=== PATIENT | male | born 1945 | race Caucasian/White ===

== ENCOUNTER 2019-04-21 13:50 | Observation (INO) ==
[2019-04-21 15:15] LABS: Basophils % 0.4 % (0.0-0.8); Eosinophils # 0.3 10*3/uL (0.0-0.87); Hematocrit 40.8 VOL% (42.0-52.0); Hemoglobin 13.6 GM/DL (14.0-18.0); Immature Granulocytes % 0.3 %; Immature Granulocytes Absolute 0.02 #; Lymphocytes # 2.5 10*3/uL (1.4-4.0); Lymphocytes % 36.9 % (21.2-54.2); Mean Corpuscular HGB Conc 33.3 GM/DL (32-36); Mean Corpuscular Volume 86.6 FL (87-102); Mean Platelet Volume 10.1 FL (9.6-12.0); Monocytes % 7.3 % (1.7-12.7); Neutrophils % 51.1 % (38.7-73.9); Platelet Count 190 T/CUMM (130-400); Red Blood Count 4.71 MC/CUMM (3.8-5.5); Red Cell Distribution Width 13.8 % (9.3-17.3); White Blood Count 6.8 T/CUMM (4-12)
[2019-04-21 15:31] LABS: Albumin 3.6 G/DL (3.4-5.0); Bilirubin,Total 1.1 MG/DL (0.2-1.0); Calcium 8.9 MG/DL (8.5-10.1); Osmolality,Calculated 287.7 MOS/KG (273-304); Total Protein 6.7 G/DL (6.4-8.3)
[2019-04-21] MEDS ORDERED: LACTULOSE 20 GM/30 ML UDCUP PO PRN (16:31)
[2019-04-21] MEDS ORDERED: ACETAMINOPHEN 325 MG TABLET PO PRN (16:31)
[2019-04-21] MEDS ORDERED: ONDANSETRON 4 MG/2 ML VIAL IV PRN (16:31)
[2019-04-21] MEDS ORDERED: NITROGLYCERIN SL 0.4 MG TABLET SL PRN (17:06)
[2019-04-21] MEDS ORDERED: ENOXAPARIN 40 MG/0.4 ML SYRINGE SUBCUT SCH (17:30)
[2019-04-22 06:22] LABS: Basophils % 0.5 % (0.0-0.8); Eosinophils # 0.3 10*3/uL (0.0-0.87); Hematocrit 41.4 VOL% (42.0-52.0); Hemoglobin 13.9 GM/DL (14.0-18.0); Immature Granulocytes % 0.2 %; Immature Granulocytes Absolute 0.01 #; Lymphocytes # 2.7 10*3/uL (1.4-4.0); Lymphocytes % 49.1 % (21.2-54.2); Mean Corpuscular HGB Conc 33.6 GM/DL (32-36); Mean Corpuscular Volume 86.8 FL (87-102); Mean Platelet Volume 10.5 FL (9.6-12.0); Monocytes % 9.3 % (1.7-12.7); Neutrophils % 35.9 % (38.7-73.9); Platelet Count 192 T/CUMM (130-400); Red Blood Count 4.77 MC/CUMM (3.8-5.5); Red Cell Distribution Width 13.8 % (9.3-17.3); White Blood Count 5.6 T/CUMM (4-12)
[2019-04-22] MEDS ORDERED: MAGNESIUM SULF RIDER 2 GM in PREMIX 1 EACH IV PRN (06:54)
[2019-04-22] MEDS ORDERED: POTASSIUM CHLORIDE RIDER 10 MEQ in PREMIX 1 EACH IV PRN (06:54)
[2019-04-22 06:55] LABS: Calcium 8.9 MG/DL (8.5-10.1); Osmolality,Calculated 285.8 MOS/KG (273-304); Risk Ratio 4.5; Thyroid Stimulating Hormone 1.26 uIU/ml (0.358-3.74); VLDL CHOLESTEROL 17.6 MG/DL
[2019-04-22] MEDS ORDERED: diphenhydrAMINE CAP 50 MG CAPSULE PO ONE (06:55)
[2019-04-22] MEDS ORDERED: DIAZEPAM 5 MG TABLET PO ONE (06:55)
[2019-04-22 06:58] LABS: Eosinophils 6 % (0-10); Lymphocytes 43 % (20-55); Platelet Estimate Adequate; Segmented Neutrophils 38 % (50-85); Total Cells Counted 100
[2019-04-22] MEDS ORDERED: LIDOCAINE 1% 20 ML VIAL ONE (07:18)
[2019-04-22] MEDS ORDERED: HEPARIN/NACL 0.9% 2 UNITS/ML 1,000 ML IV ONE (07:18)
[2019-04-22] MEDS: SODIUM CHLORIDE 0.9% 1,000 ML IV SCH ×2 (07:40→17:11)
[2019-04-22] MEDS ORDERED: fentaNYL 100 MCG/2 ML VIAL ONE (08:01)
[2019-04-22] MEDS ORDERED: MIDAZOLAM 2 MG/2 ML VIAL ONE ×2 (08:01→08:38)
[2019-04-22] MEDS ORDERED: HEPARIN/NACL 0.9% 2 UNITS/ML 500 ML IV ONE (08:35)
[2019-04-22] MEDS ORDERED: HEPARIN 5,000 UNIT/1 ML VIAL ONE (08:35)
[2019-04-22] MEDS ORDERED: ADENOSINE 90 MG/30 ML VIAL IV ONE (08:38)
[2019-04-22] MEDS ORDERED: TICAGRELOR 90 MG TABLET ONE (09:33)
[2019-04-22] MEDS ORDERED: ZALEPLON 5 MG CAPSULE PO PRN (09:39)
[2019-04-22] MEDS ORDERED: ZOLPIDEM 5 MG PO PRN (10:20)
[2019-04-22] MEDS ORDERED: diphenhydrAMINE CAP 25 MG CAPSULE PO PRN (10:21)
[2019-04-22] MEDS: ASPIRIN EC 81 MG TABLET PO SCH (11:09)
[2019-04-22] MEDS: PANTOPRAZOLE 40 MG TABLET PO SCH (11:09)
[2019-04-22] MEDS: EZETIMIBE 10 MG TABLET PO SCH (11:09)
[2019-04-22] MEDS: TICAGRELOR 90 MG TABLET PO SCH (20:35)
[2019-04-23 04:26] LABS: Basophils % 0.6 % (0.0-0.8); Eosinophils # 0.3 10*3/uL (0.0-0.87); Eosinophils % 4.1 % (0.00-10.9); Hemoglobin 13.4 GM/DL (14.0-18.0); Immature Granulocytes % 0.3 %; Immature Granulocytes Absolute 0.02 #; Lymphocytes # 2.5 10*3/uL (1.4-4.0); Lymphocytes % 39.1 % (21.2-54.2); Mean Corpuscular HGB Conc 33.5 GM/DL (32-36); Mean Corpuscular Volume 86.8 FL (87-102); Mean Platelet Volume 10.2 FL (9.6-12.0); Monocytes % 9.1 % (1.7-12.7); Neutrophils % 46.8 % (38.7-73.9); Platelet Count 181 T/CUMM (130-400); Red Blood Count 4.61 MC/CUMM (3.8-5.5); Red Cell Distribution Width 13.9 % (9.3-17.3); White Blood Count 6.4 T/CUMM (4-12)
[2019-04-23 04:39] LABS: Calcium 8.8 MG/DL (8.5-10.1); Osmolality,Calculated 286.8 MOS/KG (273-304)
[2019-04-23 07:53] LABS: Apearance,Urine CLEAR (Clear); Bilirubin,Urine Negative (Negative); Blood, Urine Negative (Negative); Glucose,Urine (UA) Negative (Negative); Ketones,Urine Negative (Negative); Mucus,Urine Occasional /LPF (Occasional); Nitrite,Urine Negative (Negative); Protein,Urine Negative; Urine Color Straw (Yellow); Urine Specific Gravity 1.016 (1.001-1.035); Urine Urobilinogen < 2.0 EU/DL (0.2-1.0)
[2019-04-23 08:36] VITALS: BP 152/80
[2019-04-23] MEDS: EZETIMIBE 10 MG TABLET PO SCH (08:58)
[2019-04-23] MEDS: PANTOPRAZOLE 40 MG TABLET PO SCH (08:58)
[2019-04-23] MEDS: TICAGRELOR 90 MG TABLET PO SCH (08:58)
[2019-04-23] MEDS: ASPIRIN EC 81 MG TABLET PO SCH (08:59)
[2019-04-23] MEDS: SODIUM CHLORIDE 0.9% 1,000 ML IV SCH (08:59)
[2019-04-23] MEDS ORDERED: ASPIRIN EC 81 MG TABLET PO SCH (09:00)
[2019-04-23] MEDS ORDERED: CILOSTAZOL 50 MG TABLET PO SCH (09:00)
== END 2019-04-23 15:01 | disposition home or self-care (01) ==
LOC: EDUNIT# → EDBD → N.ED 13:50 → N.EDINP 16:31 → INTOOBSV 16:31 → N.EDINP 17:52 → N.TELES 18:07
PROVIDERS: ADMIT Internal Medicine; ATTEND Internal Medicine
PROC: CLWWIRE (2019-04-22 08:45)
PROC: CLCCHCL (ICD-10-PCS; 2019-04-22 08:45)

== ENCOUNTER 2019-10-21 22:19 | Inpatient (IN) ==
[2019-10-21] MEDS ORDERED: NITROGLYCERIN 2% OINT 1 INCH/GM PACK TOP ONE (22:33)
[2019-10-21] MEDS ORDERED: ASPIRIN 325 MG TABLET PO STA (22:34)
[2019-10-21] MEDS ORDERED: MORPHINE 4 MG/1 ML VIAL IV STA ×2 (22:34→22:54)
[2019-10-21] MEDS ORDERED: NITROGLYCERIN 2% OINT 1 INCH/GM PACK TOP STA (22:34)
[2019-10-21] MEDS ORDERED: ASPIRIN 325 MG TABLET ONE (22:34)
[2019-10-21] MEDS ORDERED: HEPARIN 5,000 UNIT/1 ML VIAL ONE ×2 (22:34→23:39)
[2019-10-21] MEDS ORDERED: ONDANSETRON 4 MG/2 ML VIAL IV STA (22:34)
[2019-10-21] MEDS ORDERED: EPTIFIBATIDE 20,000 MCG/10 ML VIAL ONE ×2 (22:35→23:26)
[2019-10-21 22:42] LABS: Basophils # 0.1 10*3/uL (0.0-0.2); Basophils % 0.6 % (0.0-0.8); Eosinophils # 0.4 10*3/uL (0.0-0.87); Eosinophils % 3.4 % (0.00-10.9); Hemoglobin 14.6 GM/DL (14.0-18.0); Immature Granulocytes % 0.2 %; Immature Granulocytes Absolute 0.02 #; Lymphocytes # 5.9 10*3/uL (1.4-4.0); Lymphocytes % 54.8 % (21.2-54.2); Mean Corpuscular HGB Conc 33.2 GM/DL (32-36); Mean Corpuscular Volume 87.6 FL (87-102); Monocytes % 8.7 % (1.7-12.7); Neutrophils % 32.3 % (38.7-73.9); Platelet Count 231 T/CUMM (130-400); Red Blood Count 5.02 MC/CUMM (3.8-5.5); Red Cell Distribution Width 13.7 % (9.3-17.3); White Blood Count 10.7 T/CUMM (4-12)
[2019-10-21] MEDS ORDERED: HEPARIN 1,000 UNIT/1 ML VIAL IV STA (22:43)
[2019-10-21 22:49] LABS: PT Patient Result 10.8 SECS (9.8-11.9)
[2019-10-21] MEDS ORDERED: EPTIFIBATIDE 20,000 MCG/10 ML VIAL IV SCH (23:00)
[2019-10-21] MEDS ORDERED: LIDOCAINE 1% 20 ML VIAL ONE (23:02)
[2019-10-21] MEDS ORDERED: fentaNYL 100 MCG/2 ML VIAL ONE (23:02)
[2019-10-21] MEDS ORDERED: MIDAZOLAM 2 MG/2 ML VIAL ONE (23:02)
[2019-10-21 23:04] LABS: Albumin 3.8 G/DL (3.4-5.0); Bilirubin,Total 0.8 MG/DL (0.2-1.0); Calcium 9.2 MG/DL (8.5-10.1); Osmolality,Calculated 283.3 MOS/KG (273-304); Total Protein 7.1 G/DL (6.4-8.3)
[2019-10-21] MEDS ORDERED: EPTIFIBATIDE 75 MG/100 ML BOTTLE IV ONE (23:29)
[2019-10-21] MEDS: EPTIFIBATIDE 75 MG/100 ML BOTTLE IV SCH (23:32)
[2019-10-22 00:15] LABS: Band Neutrophils 2 % (0-10); Eosinophils 5 % (0-10); Lymphocytes 62 % (20-55); Segmented Neutrophils 27 % (50-85); Total Cells Counted 100
[2019-10-22 00:16] LABS: Anisocytosis 1+; Atypical Lymphocytes Moderate; Ovalocytes Few; Platelet Estimate Normal
[2019-10-22] MEDS ORDERED: TICAGRELOR 90 MG TABLET ONE (00:16)
[2019-10-22] MEDS ORDERED: FUROSEMIDE 40 MG/4 ML VIAL ONE (00:32)
[2019-10-22] MEDS ORDERED: MORPHINE 4 MG/1 ML VIAL IV ONE (00:56)
[2019-10-22] MEDS ORDERED: MORPHINE 4 MG/1 ML VIAL IV PRN (00:56)
[2019-10-22] MEDS ORDERED: NITROGLYCERIN SL 0.4 MG TABLET SL PRN (00:59)
[2019-10-22] MEDS ORDERED: POTASSIUM CHLORIDE RIDER 10 MEQ in PREMIX 1 EACH IV PRN ×2 (01:01→01:33)
[2019-10-22] MEDS ORDERED: MAGNESIUM SULF RIDER 4 GM in PREMIX 1 EACH IV PRN (01:01)
[2019-10-22] MEDS ORDERED: MAGNESIUM SULF RIDER 2 GM in PREMIX 1 EACH IV PRN (01:01)
[2019-10-22] MEDS: ALBUTEROL/IPRATROPIUM 3 ML NEB RESP TX SCH ×5 (01:15→19:34)
[2019-10-22] MEDS ORDERED: DEXTROSE 5% NACL 0.9% 1,000 ML IV SCH (01:30)
[2019-10-22] MEDS ORDERED: LOSARTAN 25 MG TABLET PO SCH (01:35)
[2019-10-22] MEDS: EPTIFIBATIDE 75 MG/100 ML BOTTLE IV SCH ×2 (01:57→07:47)
[2019-10-22] MEDS: carvediloL 3.125 MG TABLET PO SCH ×3 (02:00→17:37)
[2019-10-22] MEDS ORDERED: ONDANSETRON 4 MG/2 ML VIAL IV PRN (02:33)
[2019-10-22 02:55] LABS: Apearance,Urine CLEAR (Clear); Bilirubin,Urine Negative (Negative); Blood, Urine Moderate mg/dL (Negative); Glucose,Urine (UA) Negative (Negative); Ketones,Urine Negative (Negative); Nitrite,Urine Negative (Negative); Protein,Urine Negative; RBC,Urine 50 /HPF (0-4); Urine Color Yellow (Yellow); Urine Specific Gravity 1.027 (1.001-1.035); Urine Urobilinogen < 2.0 EU/DL (0.2-1.0); WBC,Urine 1 /HPF (0-6)
[2019-10-22 03:29] LABS: Basophils % 0.4 % (0.0-0.8); Eosinophils # 0.1 10*3/uL (0.0-0.87); Eosinophils % 0.7 % (0.00-10.9); Hematocrit 46.8 VOL% (42.0-52.0); Hemoglobin 15.8 GM/DL (14.0-18.0); Immature Granulocytes % 0.5 %; Immature Granulocytes Absolute 0.05 #; Lymphocytes # 1.7 10*3/uL (1.4-4.0); Lymphocytes % 15.4 % (21.2-54.2); Mean Corpuscular HGB Conc 33.8 GM/DL (32-36); Mean Corpuscular Volume 87.6 FL (87-102); Monocytes % 6.4 % (1.7-12.7); Neutrophils % 76.6 % (38.7-73.9); Platelet Count 217 T/CUMM (130-400); Red Blood Count 5.34 MC/CUMM (3.8-5.5); Red Cell Distribution Width 13.8 % (9.3-17.3)
[2019-10-22 03:40] LABS: Albumin 3.5 G/DL (3.4-5.0); Bilirubin,Total 1.3 MG/DL (0.2-1.0); Calcium 8.3 MG/DL (8.5-10.1); Osmolality,Calculated 278.7 MOS/KG (273-304)
[2019-10-22] MEDS ORDERED: TICAGRELOR 90 MG TABLET PO ONE (07:26)
[2019-10-22 08:30] LABS: CKMB % 6.8 %
[2019-10-22] MEDS: ASPIRIN EC 81 MG TABLET PO SCH (09:30)
[2019-10-22] MEDS: ISOSORBIDE MONONITRATE 30 MG TABLET PO SCH (09:30)
[2019-10-22] MEDS: TICAGRELOR 90 MG TABLET PO SCH ×2 (09:30→21:43)
[2019-10-22] MEDS: MAGNESIUM OXIDE 400 MG TABLET PO SCH ×2 (09:30→21:43)
[2019-10-22] MEDS: FUROSEMIDE 40 MG TABLET PO SCH (09:30)
[2019-10-22] MEDS: cilostazoL 50 MG TABLET PO SCH ×2 (09:30→21:43)
[2019-10-22] MEDS: POTASSIUM CHLORIDE 20 MEQ TABLET PO SCH ×2 (09:30→21:43)
[2019-10-22] MEDS: FLUTICASONE 50 MCG NASAL SPRAY 16 GM BOTTLE BOTH NARES SCH (09:30)
[2019-10-22] MEDS: LOSARTAN 25 MG TABLET PO SCH (09:30)
[2019-10-22] MEDS: PANTOPRAZOLE 40 MG TABLET PO SCH (09:30)
[2019-10-22 13:56] LABS: CKMB % 6.2 %
[2019-10-22 20:15] LABS: CKMB % 4.8 %
[2019-10-22 20:20] LABS: Troponin I 91.2 NG/ML (0.00-0.045)
[2019-10-23 07:04] LABS: Basophils % 0.3 % (0.0-0.8); Eosinophils # 0.2 10*3/uL (0.0-0.87); Eosinophils % 1.7 % (0.00-10.9); Hemoglobin 15.4 GM/DL (14.0-18.0); Immature Granulocytes % 0.4 %; Immature Granulocytes Absolute 0.05 #; Lymphocytes # 2.7 10*3/uL (1.4-4.0); Lymphocytes % 23.3 % (21.2-54.2); Mean Corpuscular Volume 85.1 FL (87-102); Mean Platelet Volume 10.4 FL (9.6-12.0); Neutrophils % 63.3 % (38.7-73.9); Platelet Count 197 T/CUMM (130-400); Red Blood Count 5.17 MC/CUMM (3.8-5.5); Red Cell Distribution Width 13.7 % (9.3-17.3); White Blood Count 11.7 T/CUMM (4-12)
[2019-10-23] MEDS: ALBUTEROL/IPRATROPIUM 3 ML NEB RESP TX SCH ×3 (07:35→19:29)
[2019-10-23 07:45] LABS: Calcium 8.7 MG/DL (8.5-10.1); Osmolality,Calculated 267.4 MOS/KG (273-304); Risk Ratio 4.5; VLDL CHOLESTEROL 21.6 MG/DL
[2019-10-23] MEDS: ISOSORBIDE MONONITRATE 30 MG TABLET PO SCH (08:50)
[2019-10-23] MEDS: cilostazoL 50 MG TABLET PO SCH ×2 (08:50→21:13)
[2019-10-23] MEDS: POTASSIUM CHLORIDE 20 MEQ TABLET PO SCH ×2 (08:50→21:13)
[2019-10-23] MEDS: ASPIRIN EC 81 MG TABLET PO SCH (08:50)
[2019-10-23] MEDS: TICAGRELOR 90 MG TABLET PO SCH ×2 (08:51→21:13)
[2019-10-23] MEDS: FUROSEMIDE 40 MG TABLET PO SCH (08:51)
[2019-10-23] MEDS: PANTOPRAZOLE 40 MG TABLET PO SCH (08:51)
[2019-10-23] MEDS: carvediloL 3.125 MG TABLET PO SCH (08:51)
[2019-10-23] MEDS: MAGNESIUM OXIDE 400 MG TABLET PO SCH ×2 (08:51→21:13)
[2019-10-23] MEDS: LOSARTAN 25 MG TABLET PO SCH (08:51)
[2019-10-23] MEDS: FLUTICASONE 50 MCG NASAL SPRAY 16 GM BOTTLE BOTH NARES SCH (08:53)
[2019-10-23] MEDS: carvediloL 6.25 MG TABLET PO SCH (16:36)
[2019-10-23] MEDS ORDERED: EZETIMIBE 10 MG TABLET PO SCH (21:00)
[2019-10-24] MEDS: ALBUTEROL/IPRATROPIUM 3 ML NEB RESP TX SCH (07:23)
[2019-10-24 07:37] LABS: Basophils % 0.4 % (0.0-0.8); Eosinophils # 0.2 10*3/uL (0.0-0.87); Eosinophils % 2.3 % (0.00-10.9); Hematocrit 41.7 VOL% (42.0-52.0); Immature Granulocytes % 0.3 %; Immature Granulocytes Absolute 0.03 #; Lymphocytes # 2.3 10*3/uL (1.4-4.0); Lymphocytes % 25.1 % (21.2-54.2); Mean Corpuscular HGB Conc 33.6 GM/DL (32-36); Mean Corpuscular Volume 87.2 FL (87-102); Mean Platelet Volume 10.5 FL (9.6-12.0); Monocytes % 13.2 % (1.7-12.7); Neutrophils % 58.7 % (38.7-73.9); Platelet Count 184 T/CUMM (130-400); Red Blood Count 4.78 MC/CUMM (3.8-5.5); Red Cell Distribution Width 13.8 % (9.3-17.3); White Blood Count 9.3 T/CUMM (4-12)
[2019-10-24 07:52] LABS: Calcium 8.9 MG/DL (8.5-10.1); Osmolality,Calculated 275.1 MOS/KG (273-304)
[2019-10-24] MEDS: MAGNESIUM OXIDE 400 MG TABLET PO SCH (09:49)
[2019-10-24] MEDS: ISOSORBIDE MONONITRATE 30 MG TABLET PO SCH (09:50)
[2019-10-24] MEDS: PANTOPRAZOLE 40 MG TABLET PO SCH (09:50)
[2019-10-24] MEDS: FUROSEMIDE 40 MG TABLET PO SCH (09:50)
[2019-10-24] MEDS: cilostazoL 50 MG TABLET PO SCH (09:50)
[2019-10-24] MEDS: ASPIRIN EC 81 MG TABLET PO SCH (09:50)
[2019-10-24] MEDS: LOSARTAN 25 MG TABLET PO SCH (09:50)
[2019-10-24] MEDS: TICAGRELOR 90 MG TABLET PO SCH (09:50)
[2019-10-24] MEDS: carvediloL 6.25 MG TABLET PO SCH (09:50)
[2019-10-24] MEDS: POTASSIUM CHLORIDE 20 MEQ TABLET PO SCH (09:50)
[2019-10-24] MEDS: FLUTICASONE 50 MCG NASAL SPRAY 16 GM BOTTLE BOTH NARES SCH (09:52)
[2019-10-24 12:16] VITALS: BP 95/59
== END 2019-10-24 12:27 | disposition home or self-care (01) | DRG 246 ==
LOC: N.ED 22:19 → N.EDINP 23:05 → SUPCPDRO 23:13 → N.EDINP 23:13 → N.ICU 10-22 00:42 → N.TELEN 10-22 14:13
PROVIDERS: ADMIT Internal Medicine Cardiovascular Disease; ATTEND Internal Medicine Cardiovascular Disease
PROC: CLCCHCL (ICD-10-PCS; 2019-10-21 23:45)

== ENCOUNTER 2022-07-16 17:40 | Observation (INO) ==
[2022-07-16] MEDS ORDERED: ASPIRIN 325 MG TABLET PO STA (18:30)
[2022-07-16 18:37] LABS: Basophils # 0.1 10*3/uL (0.0-0.2); Basophils % 1.1 % (0.0-0.8); Eosinophils % 14.4 % (0.00-10.9); Hematocrit 40.1 VOL% (42.0-52.0); Hemoglobin 13.7 GM/DL (14.0-18.0); Immature Granulocytes % 0.3 %; Immature Granulocytes Absolute 0.02 #; Lymphocytes # 2.9 10*3/uL (1.4-4.0); Lymphocytes % 43.1 % (21.2-54.2); Mean Corpuscular HGB Conc 34.2 GM/DL (32-36); Mean Corpuscular Volume 86.4 FL (87-102); Mean Platelet Volume 9.6 FL (9.6-12.0); Monocytes # 0.7 10*3/uL (0.11-0.8); Monocytes % 10.6 % (1.7-12.7); Neutrophils % 30.5 % (38.7-73.9); Platelet Count 245 T/CUMM (130-400); Red Blood Count 4.64 MC/CUMM (3.8-5.5); Red Cell Distribution Width 13.7 % (9.3-17.3); White Blood Count 6.62 T/CUMM (4-12)
[2022-07-16 18:43] LABS: PT Patient Result 10.9 SECS (10.1-12.1)
[2022-07-16 18:52] LABS: Albumin 3.6 G/DL (3.4-5.0); Bilirubin,Total 0.9 MG/DL (0.20-1.00); Calcium 8.9 MG/DL (8.5-10.1); Osmolality,Calculated 280.5 MOS/KG (273-304); Potassium 3.5 MMOL/L (3.5-5.1); Total Protein 7.1 G/DL (6.4-8.2)
[2022-07-16] MEDS ORDERED: ONDANSETRON 4 MG/2 ML VIAL IV ONE (19:18)
[2022-07-16] MEDS ORDERED: MORPHINE 2 MG/1 ML SYRINGE IV ONE (19:18)
[2022-07-16] MEDS ORDERED: NITROGLYCERIN 2% OINT 1 INCH/GM PACK TOP STA (19:19)
[2022-07-16] MEDS ORDERED: ENOXAPARIN 80 MG/0.8 ML SYRINGE SUBCUT STA (19:37)
[2022-07-16 19:56] LABS: Eosinophils 11 % (0-10); Lymphocytes 45 % (20-55); Total Cells Counted 100
[2022-07-16 19:58] LABS: Atypical Lymphocytes Few; Ovalocytes Slight; Platelet Estimate Normal
[2022-07-16] MEDS ORDERED: ONDANSETRON 4 MG/2 ML VIAL IV PRN (21:19)
[2022-07-16] MEDS ORDERED: ZALEPLON 5 MG CAPSULE PO PRN (21:19)
[2022-07-16] MEDS ORDERED: ACETAMINOPHEN 325 MG TABLET PO PRN (21:19)
[2022-07-16] MEDS ORDERED: DOCUSATE SODIUM 100 MG CAPSULE PO PRN (21:19)
[2022-07-16] MEDS ORDERED: ZALEPLON 5 MG CAPSULE PO STA (21:20)
[2022-07-16] MEDS ORDERED: NITROGLYCERIN SL 0.4 MG TABLET SL PRN (21:21)
[2022-07-16] MEDS ORDERED: POTASSIUM CHLORIDE 20 MEQ TABLET PO STA (21:23)
[2022-07-16] MEDS: TICAGRELOR 90 MG TABLET PO SCH (21:52)
[2022-07-16] MEDS ORDERED: ALBUTEROL 2.5 MG/3 ML NEB RESP TX PRN (21:56)
[2022-07-17 05:14] LABS: Basophils % 0.5 % (0.0-0.8); Eosinophils # 0.8 10*3/uL (0.0-0.87); Eosinophils % 12.5 % (0.00-10.9); Hematocrit 40.1 VOL% (42.0-52.0); Hemoglobin 13.3 GM/DL (14.0-18.0); Immature Granulocytes % 0.2 %; Immature Granulocytes Absolute 0.01 #; Lymphocytes # 2.5 10*3/uL (1.4-4.0); Lymphocytes % 40.8 % (21.2-54.2); Mean Corpuscular HGB Conc 33.2 GM/DL (32-36); Mean Corpuscular Volume 89.3 FL (87-102); Mean Platelet Volume 9.6 FL (9.6-12.0); Monocytes # 0.6 10*3/uL (0.11-0.8); Platelet Count 204 T/CUMM (130-400); Red Blood Count 4.49 MC/CUMM (3.8-5.5); Red Cell Distribution Width 13.8 % (9.3-17.3)
[2022-07-17 05:50] LABS: Atypical Lymphocytes Few; Eosinophils 7 % (0-10); Lymphocytes 50 % (20-55); Platelet Estimate Adequate; Total Cells Counted 100
[2022-07-17 05:51] LABS: Calcium 8.8 MG/DL (8.5-10.1); Osmolality,Calculated 281.3 MOS/KG (273-304); Potassium 4.1 MMOL/L (3.5-5.1); Risk Ratio 4.03; Thyroid Stimulating Hormone 2.04 uIU/ml (0.358-3.74); VLDL Cholesterol 12.8 MG/DL
[2022-07-17] MEDS: TICAGRELOR 90 MG TABLET PO SCH ×2 (08:39→21:38)
[2022-07-17] MEDS: ASPIRIN EC 81 MG TABLET PO SCH (08:39)
[2022-07-17] MEDS: carvediloL 3.125 MG TABLET PO SCH ×2 (08:39→21:38)
[2022-07-17] MEDS: PANTOPRAZOLE 40 MG TABLET PO SCH ×2 (08:39→21:38)
[2022-07-17] MEDS: cilostazoL 50 MG TABLET PO SCH ×2 (08:39→21:38)
[2022-07-17] MEDS: ISOSORBIDE MONONITRATE 60 MG TABLET PO SCH (08:39)
[2022-07-17] MEDS: FUROSEMIDE 40 MG TABLET PO SCH (08:39)
[2022-07-17] MEDS: NITROGLYCERIN 2% OINT 1 INCH/GM PACK TOP SCH ×2 (08:40→15:08)
[2022-07-17] MEDS: MORPHINE 2 MG/1 ML SYRINGE IV PRN (08:46)
[2022-07-17] MEDS ORDERED: ENOXAPARIN 80 MG/0.8 ML SYRINGE SUBCUT SCH (09:00)
[2022-07-17] MEDS ORDERED: SODIUM CHLORIDE 0.9% 1,000 ML IV SCH (10:00)
[2022-07-17] MEDS ORDERED: DIAZEPAM 5 MG TABLET PO ONE (15:00)
[2022-07-17] MEDS ORDERED: diphenhydrAMINE CAP 50 MG CAPSULE PO ONE (15:00)
[2022-07-17] MEDS ORDERED: HEPARIN/NACL 0.9% 2 UNITS/ML 2,000 UNIT/1,000 ML BAG IV ONE (16:22)
[2022-07-17] MEDS ORDERED: MIDAZOLAM 2 MG/2 ML VIAL ONE (16:34)
[2022-07-17] MEDS ORDERED: fentaNYL 100 MCG/2 ML VIAL ONE (16:34)
[2022-07-17] MEDS ORDERED: ENOXAPARIN 60 MG/0.6 ML SYRINGE ONE (16:47)
[2022-07-17] MEDS ORDERED: TICAGRELOR 90 MG TABLET ONE (17:25)
[2022-07-17] MEDS ORDERED: EZETIMIBE 10 MG TABLET PO SCH (21:00)
[2022-07-18] MEDS: MORPHINE 2 MG/1 ML SYRINGE IV PRN (03:57)
[2022-07-18 06:06] LABS: Basophils % 0.2 % (0.0-0.8); Eosinophils # 0.5 10*3/uL (0.0-0.87); Eosinophils % 5.2 % (0.00-10.9); Hematocrit 40.4 VOL% (42.0-52.0); Hemoglobin 13.4 GM/DL (14.0-18.0); Immature Granulocytes % 0.4 %; Immature Granulocytes Absolute 0.04 #; Lymphocytes # 0.6 10*3/uL (1.4-4.0); Lymphocytes % 6.4 % (21.2-54.2); Mean Corpuscular HGB Conc 33.2 GM/DL (32-36); Mean Corpuscular Volume 87.1 FL (87-102); Mean Platelet Volume 9.5 FL (9.6-12.0); Monocytes # 0.6 10*3/uL (0.11-0.8); Monocytes % 6.8 % (1.7-12.7); Platelet Count 210 T/CUMM (130-400); Red Blood Count 4.64 MC/CUMM (3.8-5.5); Red Cell Distribution Width 13.7 % (9.3-17.3); White Blood Count 9.22 T/CUMM (4-12)
[2022-07-18 06:28] LABS: Calcium 8.9 MG/DL (8.5-10.1); Osmolality,Calculated 281.7 MOS/KG (273-304); Potassium 3.6 MMOL/L (3.5-5.1)
[2022-07-18] MEDS: TICAGRELOR 90 MG TABLET PO SCH (08:33)
[2022-07-18] MEDS: carvediloL 3.125 MG TABLET PO SCH (08:34)
[2022-07-18] MEDS: FUROSEMIDE 40 MG TABLET PO SCH (08:34)
[2022-07-18] MEDS: ASPIRIN EC 81 MG TABLET PO SCH (08:34)
[2022-07-18] MEDS: ISOSORBIDE MONONITRATE 60 MG TABLET PO SCH (08:34)
[2022-07-18] MEDS: cilostazoL 50 MG TABLET PO SCH (08:34)
[2022-07-18] MEDS: PANTOPRAZOLE 40 MG TABLET PO SCH (08:34)
[2022-07-18 08:37] VITALS: BP 96/59
[2022-07-18] MEDS ORDERED: CHOLECALCIFEROL 1,000 UNIT TABLET PO SCH (09:00)
== END 2022-07-18 10:19 | disposition home or self-care (01) ==
LOC: N.ED 17:40 → N.2W 17:40 → SUATTDRO 20:28 → N.2W 07-17 00:40
PROVIDERS: ADMIT Internal Medicine; ATTEND Internal Medicine
PROC: CLCCHCL (ICD-10-PCS; 2022-07-17 16:15)